=== PATIENT | male | born 1960 | race Caucasian/White ===

== ENCOUNTER 2017-11-26 19:12 | Emergency (ER) | payer BC ==
[2017-11-26 19:22] VITALS: BP 141/39; PULSE 91; TEMP 98.5; BMI 38.0
--- NOTE | 2017-11-26 19:45 | PDOC ---
History of Present Illness - General Chief Complaint: Chest Pain Stated Complaint: CHEST PAIN Time Seen by Provider: 11/26/17 19:21 Past History - Past Medical History Allergies/Adverse Reactions: Allergies Allergy/AdvReac Type Severity Reaction Status Date / Time No Known Allergies Allergy Verified 11/26/17 19:20 Home Medications: Ambulatory Orders Aspirin [ASA -] 81 mg PO DAILY 11/12/15 Atorvastatin Calcium 80 mg PO HS 11/12/15 Lisinopril [Zestril] 2.5 mg PO DAILY 11/12/15 Ticagrelor [Brilinta] 90 mg PO BID 11/12/15 Anemia: No Asthma: No Cancer: No Cardiac Disorders: Yes (stents x2 05/28) CVA: No COPD: No CHF: No Dementia: No Diabetes: No GI Disorders: Yes (GERD) Disorders: No HTN: Yes Hypercholesterolemia: Yes Liver Disease: No Seizures: No Thyroid Disease: No - Surgical History Abdominal Surgery: No Appendectomy: No Cardiac Surgery: No Cholecystectomy: No Lung Surgery: No Neurologic Surgery: No Orthopedic Surgery: Yes (BILAT KNEE REPLACEMENT) - Immunization History Immunization Up to Date: Yes - Suicide/Smoking/Psychosocial Hx Smoking History: Current every day smoker Have you smoked in the past 12 months: Yes Number of Cigarettes Smoked Daily: 10 Cigars Per Day: 0 Information on smoking cessation initiated: No 'Breaking Loose' booklet given: 11/12/15 Hx Alcohol Use: No Drug/Substance Use Hx: No Substance Use Type: None Hx Substance Use Treatment: No *Physical Exam - Vital Signs Last Vital Signs Temp Pulse Resp BP Pulse Ox 98.5 F 91 H 18 141/39 98 11/26/17 19:20 11/26/17 19:20 11/26/17 19:20 11/26/17 19:20 11/26/17 19:20 Medical Decision Making - Medical Decision Making 11/26/17 19:47 Pt wants to sign out AMA. He came for an EKG; it is NSR and he wants to go home. *DC/Admit/Observation/Transfer Diagnosis at time of Disposition: Chest pain - Discharge Dispostion Disposition: AGAINST MEDICAL ADVICE Condition at time of disposition: Stable - Referrals - Patient Instructions - Post Discharge Activity
--- NOTE | 2017-11-27 12:21 | EKG ---
Test Reason : Blood Pressure : / mmHG Vent. Rate : 084 BPM Atrial Rate : 084 BPM P-R Int : 164 ms QRS Dur : 098 ms QT Int : 374 ms P-R-T Axes : 060 013 036 degrees QTc Int : 441 ms NORMAL SINUS RHYTHM NORMAL ECG NO PREVIOUS ECGS AVAILABLE Confirmed by JON VERNON MD ([id number]) on 11/27/2017 12:21:41 PM Referred By: Confirmed By:JON VERNON MD
== END 2017-11-26 20:04 | disposition left against medical advice (07) ==
LOC: JER 19:12
DX: R07.89 Other chest pain (principal); I10 Essential (primary) hypertension; K21.9 Gastro-esophageal reflux disease without esophagitis; E78.00 Pure hypercholesterolemia, unspecified; F17.210 Nicotine dependence, cigarettes, uncomplicated; Z79.82 Long term (current) use of aspirin; Z96.653 Presence of artificial knee joint, bilateral
CPT/HCPCS: 93005; 93010; 99282-25

== ENCOUNTER 2018-07-28 14:46 | Emergency (ER) | payer BC ==
[2018-07-28 14:55] VITALS: BMI 38.3
--- NOTE | 2018-07-28 15:02 | PDOC ---
History of Present Illness - General Chief Complaint: Pain, Acute Stated Complaint: ABDOMINAL PAIN, VOMITING Time Seen by Provider: 07/28/18 15:02 - History of Present Illness Initial Comments: 07/28/18 15:02 Mr. Crenshaw is a 58 yo male w/ pmh of CAD, HLD, HTN, obesity, alcohol abuse w / hepatitis, known umbilical hernia who presents for evaluation of 1 day history of abdominal pain with nausea and vomiting. Patient reports symptoms started yesterday following lunch at [employer] consisting of chili. Patient reports he has had multiple episodes of nausea and vomiting since this time as well as diffuse abdominal pain. Denies any changes in bowel movements and last was 0530 this AM and normal. The patient denies chest pain, shortness of breath, headache and dizziness. Denies fever, chills, diarrhea and constipation. Denies dysuria, frequency, urgency and hematuria. Past History - Past Medical History Allergies/Adverse Reactions: Allergies Allergy/AdvReac Type Severity Reaction Status Date / Time No Known Allergies Allergy Verified 07/28/18 14:51 Home Medications: Ambulatory Orders Aspirin [ASA -] 81 mg PO DAILY 11/12/15 Atorvastatin Calcium 80 mg PO HS 11/12/15 Lisinopril [Zestril] 2.5 mg PO DAILY 11/12/15 Ticagrelor [Brilinta] 90 mg PO BID 11/12/15 Nystatin Cream [Mycostatin Cream -] 1 applic TP TID #1 bottle 07/28/18 Anemia: No Asthma: No Cancer: No Cardiac Disorders: Yes (stents x2 05/28) CVA: No COPD: No CHF: No Dementia: No Diabetes: No GI Disorders: Yes (GERD) Disorders: No HTN: Yes Hypercholesterolemia: Yes Liver Disease: No Seizures: No Thyroid Disease: No - Surgical History Abdominal Surgery: No Appendectomy: No Cardiac Surgery: No Cholecystectomy: No Lung Surgery: No Neurologic Surgery: No Orthopedic Surgery: Yes (BILAT KNEE REPLACEMENT) - Immunization History Immunization Up to Date: Yes - Suicide/Smoking/Psychosocial Hx Smoking History: Current every day smoker Have you smoked in the past 12 months: Yes Number of Cigarettes Smoked Daily: 10 Cigars Per Day: 0 Information on smoking cessation initiated: No 'Breaking Loose' booklet given: 11/12/15 Hx Alcohol Use: No Drug/Substance Use Hx: No Substance Use Type: None Hx Substance Use Treatment: No Review of Systems - Review of Systems Comments:: 07/28/18 15:02 GENERAL/CONSTITUTIONAL: No fever or chills. No weakness. HEAD, EYES, EARS, NOSE AND THROAT: No change in vision. No ear pain or discharge. No sore throat. CARDIOVASCULAR: No chest pain or shortness of breath RESPIRATORY: No cough, wheezing, or hemoptysis. GASTROINTESTINAL: +3+ episodes of N/V consisting of food eaten. Generalized abdominal pain. No diarrhea or constipation. GENITOURINARY: No dysuria, frequency, or change in urination. MUSCULOSKELETAL: No joint or muscle swelling or pain. No neck or back pain. SKIN: No rash NEUROLOGIC: No headache, vertigo, loss of consciousness, or change in strength/ sensation. ENDOCRINE: No increased thirst. No abnormal weight change HEMATOLOGIC/LYMPHATIC: No anemia, easy bleeding, or history of blood clots. ALLERGIC/IMMUNOLOGIC: No hives or skin allergy. *Physical Exam - Vital Signs Last Vital Signs Temp Pulse Resp BP Pulse Ox 97.9 F 106 H 17 156/84 96 07/28/18 14:51 07/28/18 14:51 07/28/18 14:51 07/28/18 14:51 07/28/18 14:51 - Physical Exam Comments: 07/28/18 15:03 GENERAL: Awake, alert, and fully oriented, in no acute distress HEAD: No signs of trauma, normocephalic, atraumatic EYES: PERRLA, EOMI, sclera anicteric, conjunctiva clear ENT: Auricles normal inspection, hearing grossly normal, nares patent, oropharynx clear without exudates. Moist mucosa NECK: Normal ROM, supple, no lymphadenopathy, JVD, or masses LUNGS: No distress, speaks full sentences, clear to auscultation bilaterally HEART: Regular rate and rhythm, normal S1 and S2, no murmurs, rubs or gallops, peripheral pulses normal and equal bilaterally. ABDOMEN: +Diffuse abdominal TTP. Soft, normoactive bowel sounds. No guarding, no rebound. No masses EXTREMITIES: Normal inspection, Normal range of motion, no edema. No clubbing or cyanosis. NEUROLOGICAL: Cranial nerves II through XII grossly intact. Normal speech, normal gait, no focal sensorimotor deficits SKIN: Warm, Dry, normal turgor, no rashes or lesions noted. Moderate Sedation - Procedure Monitoring Vital Signs: Procedure Monitoring Vital Signs Temperature 97.9 F 07/28/18 14:51 Pulse Rate 106 H 07/28/18 14:51 Respiratory Rate 17 07/28/18 14:51 Blood Pressure 156/84 07/28/18 14:51 O2 Sat by Pulse Oximetry (%) 96 07/28/18 14:51 ED Treatment Course - LABORATORY CBC & Chemistry Diagram: 07/28/18 15:30 07/28/18 15:30 Medical Decision Making - Medical Decision Making 07/28/18 15:54 Mr. Crenshaw is a 58 yo male w/ pmh as described who presents for evaluation of symptoms of N/V/abdominal pain. Patient workup started with labs for evaluation of liver failure vs. infectious process vs. pancreatitis and symptomatic relief given w/ pepcid/zofran/fluids/maalox. Upon repeat interview patient also endorsed lesion on penis. On examination patient noted to have cracked area w/ exam consistent with fungal infection to foreskin. Nystatin cream ordered for treatment to patient's pharmacy. 07/28/18 18:08 CT ordered for patient as pain persisting. Labs grossly wnl as below. CT negative for acute process displaying only small midline umbilical hernia superior to umbilicus that was previously known to patient. Patient reporting relief from symptoms and would like to go home. Discharging to home. Laboratory Results - last 24 hr 07/28/18 07/28/18 15:30 15:30 WBC 5.7 RBC 5.11 Hgb 15.2 Hct 47.1 D MCV 92.2 MCH 29.7 MCHC 32.2 RDW 14.2 Plt Count 212 MPV 8.3 Absolute Neuts (auto) 5.0 Neutrophils % 87.6 H D Lymphocytes % 7.8 L D Monocytes % 4.0 Eosinophils % 0.4 Basophils % 0.2 Nucleated RBC % 0 Sodium 140 Potassium 4.2 Chloride 105 Carbon Dioxide 26 Anion Gap 9 BUN 14 Creatinine 1.0 Creat Clearance w eGFR > 60 Random Glucose 121 H Calcium 8.8 Total Bilirubin 0.6 AST 43 H ALT 52 Alkaline Phosphatase 68 Total Protein 7.0 Albumin 3.8 Lipase 94 *DC/Admit/Observation/Transfer Diagnosis at time of Disposition: Balanoposthitis Vomiting Qualifiers: Vomiting type: unspecified Vomiting Intractability: non-intractable Nausea presence: with nausea Qualified Code(s): R11.2 - Nausea with vomiting, unspecified - Discharge Dispostion Disposition: HOME - Prescriptions Prescriptions: Nystatin Cream [Mycostatin Cream -] 1 applic TP TID #1 bottle - Referrals - Patient Instructions Printed Discharge Instructions: DI for Vomiting -- Adult Additional Instructions: You were evaluated today in the ER for your abdominal pain and vomiting. We evaluated you with labs and an abdominal and pelvis CT. No concerning findings were found at this time and you reported improvement of your symptoms after some GI medications. We have also sent a prescription to your pharmacy for fungal infection found on exam. Take all medications as described. You may follow-up with your primary care provider for further evaluation later this week. Return to ER if any further abdominal pain, nausea, vomiting, fever, chills, or other concerning symptoms. - Post Discharge Activity
[2018-07-28] MEDS ORDERED: ONDANSETRON 4 MG/2 ML VIAL IVPUSH ONE (15:17)
[2018-07-28] MEDS ORDERED: SODIUM CHLORIDE 1,000 ML IV STA (15:17)
[2018-07-28] MEDS ORDERED: MAG HYDROX/AL HYDROX/SIMETH 30 ML UNIT-DOSE CUP PO ONE (15:18)
[2018-07-28] MEDS ORDERED: FAMOTIDINE 20 MG/50 ML IVPB 20 MG/50 ML MG IVPB ONE ×2 (15:18→15:24)
[2018-07-28] MEDS ORDERED: ONDANSETRON 4 MG/2 ML VIAL ONE (15:24)
[2018-07-28] MEDS ORDERED: MAG HYDROX/AL HYDROX/SIMETH 30 ML UNIT-DOSE CUP ONE (15:24)
[2018-07-28 15:33] LABS: HEMOGLOBIN 15.2 GM/dL (11.7-16.9); WHITE BLOOD COUNT 5.7 K/mm3 (4.0-10.0)
[2018-07-28 15:52] LABS: ALBUMIN 3.8 g/dl (3.4-5.0); ALK PHOS 68 U/L (45-117); ANION GAP 9 MMOL/L (8-16); BASO % 0.2 % (0-2.0); BILIRUBIN,TOTAL 0.6 mg/dL (0.2-1); BLOOD UREA NITROGEN 14 mg/dL (7-18); CALCIUM 8.8 mg/dL (8.5-10.1); CHLORIDE 105 mmol/L (98-107); CO2 26 mmol/L (21-32); EOS % 0.4 % (0-4.5); GLUCOSE,RANDOM 121 mg/dL (74-106); HEMATOCRIT 47.1 % (35.4-49); LIPASE 94 U/L (73-393); LYMPH % 7.8 % (8-40); MCH 29.7 pg (25.7-33.7); MCHC 32.2 g/dl (32.0-35.9); MEAN CELL VOLUME 92.2 fl (80-96); MEAN PLT VOLUME 8.3 fl (7.5-11.1); NEUT % 87.6 % (42.8-82.8); PLATELET COUNT 212 K/MM3 (134-434); POTASSIUM 4.2 mmol/L (3.5-5.1); RBC 5.11 M/mm3 (4.00-5.60); RDW 14.2 % (11.9-15.9); SGOT/AST 43 U/L (15-37); SGPT/ALT 52 U/L (13-61); SODIUM 140 mmol/L (136-145)
--- NOTE | 2018-07-28 16:04 | PDOC ---
Attending Attestation - HPI HPI: 07/28/18 16:05 The patient is a 58 year old male, with a significant PMH of coronary artery disease, hyperlipidemia, hypertension, obesity, alcohol abuse w/ hepatitis, known umbilical hernia, who presents to the emergency department with 1 day of diffuse abdominal pain and nausea with vomiting. The patient states he had chili with baked potato from [employer] yesterday preceding his symptoms. That patient reports his last bowel movement was at 5:30 am this morning which was normal. The patient also has an additional complaint of dysuria and pain surrounding his foreskin, worsened during intercourse, for approx 3 weeks. The patient denies chest pain, shortness of breath, headache and dizziness. Denies fever, chills, diarrhea and constipation. Denies frequency, urgency and hematuria. Allergies: NKA Documentation prepared by Leopoldo Vargas, acting as vice president medical affairs for Astrid Villanueva MD. <Leopoldo Vargas - Last Filed: 07/28/18 16:05> - Resident Resident Name: Vik Louie - ED Attending Attestation I have performed the following: I have examined & evaluated the patient, The case was reviewed & discussed with the resident, I agree w/resident's findings & plan, Exceptions are as noted - Physicial Exam PE: GENERAL: Awake, alert, and fully oriented, in no acute distress HEAD: No signs of trauma EYES: PERRLA, EOMI, sclera anicteric, conjunctiva clear ENT: Auricles normal inspection, hearing grossly normal, nares patent, oropharynx clear without exudates. Moist mucosa NECK: Normal ROM, supple, no lymphadenopathy, JVD, or masses LUNGS: Breath sounds equal, clear to auscultation bilaterally. No wheezes, and no crackles HEART: Regular rate and rhythm, normal S1 and S2, no murmurs, rubs or gallops ABDOMEN: Soft, nontender, normoactive bowel sounds. No guarding, no rebound. No masses EXTREMITIES: Normal range of motion, no edema. No clubbing or cyanosis. No cords, erythema, or tenderness NEUROLOGICAL: Cranial nerves II through XII grossly intact. Normal speech, normal gait SKIN: Warm, Dry, normal turgor, no rashes or lesions noted. : Uncircumcised. +Multiple cracks in the skin of the foreskin, with thickening , no drainage, no erythema. - Medical Decision Making 07/28/18 16:03 Pt with abd pain, N/V. Noted to have wheezing, also balanoposthitis. Will obtain labs to r/o DM, liver failure. 07/28/18 17:43 Pt reports improvement in symptoms. Awaiting CT results. 07/29/18 18:27 CT read, no acute findings. Patient asymptomatic. Stable for DC home. <Astrid Villanueva - Last Filed: 07/29/18 07:28>
[2018-07-28 18:04] VITALS: BP 151/95; PULSE 93; TEMP 98.8
--- NOTE | 2018-07-29 12:14 | EKG ---
Test Reason : Blood Pressure : / mmHG Vent. Rate : 096 BPM Atrial Rate : 096 BPM P-R Int : 170 ms QRS Dur : 096 ms QT Int : 366 ms P-R-T Axes : 059 007 029 degrees QTc Int : 462 ms NORMAL SINUS RHYTHM NORMAL ECG WHEN COMPARED WITH ECG OF 26-NOV-2017 19:21, NO SIGNIFICANT CHANGE WAS FOUND Confirmed by JON VERNON MD ([id number]) on 07/29/2018 12:13:51 PM Referred By: Confirmed By:JON VENRON MD
== END 2018-07-28 18:37 | disposition home or self-care (01) ==
LOC: JER 14:46
PROC: 3E033GC Introduction of Other Therapeutic Substance into Peripheral Vein, Percutaneous Approach (ICD-10-PCS; principal; 2018-07-28)
PROC: 3E0337Z Introduction of Electrolytic and Water Balance Substance into Peripheral Vein, Percutaneous Approach (ICD-10-PCS; 2018-07-28)
DX: R05 Cough (principal); N47.6 Balanoposthitis; R11.2 Nausea with vomiting, unspecified; F17.210 Nicotine dependence, cigarettes, uncomplicated; Z96.653 Presence of artificial knee joint, bilateral; I10 Essential (primary) hypertension; E78.00 Pure hypercholesterolemia, unspecified; K21.9 Gastro-esophageal reflux disease without esophagitis; Z95.5 Presence of coronary angioplasty implant and graft
CPT/HCPCS: 36415; 71046-TC-FY; 74177-TC; 80053; 83690; 85025; 93005; 93010; 99283-25; J7030